=== PATIENT | male | born 1960 | race Caucasian/White ===

== ENCOUNTER 2016-12-24 13:07 | Emergency (ER) | payer OTHER ==
[2016-12-24 14:00] LABS: BASOPHIL 0.5 % (0-2); EOSINOPHIL 1.5 % (0-5); HCT 42.4 % (42.0-52.0); HGB 14.1 g/dl (13.2-18.0); LYMPHOCYTE 39.2 % (15-48); MCH 28.3 pg (25.0-31.0); MCHC 33.3 g/dL (32.0-36.0); MCV 85.1 fL (78.0-100.0); MONOCYTE 19.6 % (0-12); MPV 11.5 fL (6.0-9.5); NEUTROPHIL 39.2 % (41-80); PLT 146 K/uL (150-400); RBC 4.98 M/uL (4.70-6.00); RDW 13.7 % (11.5-14.0)
[2016-12-24 14:09] LABS: INR 1.13 (0.9-1.2); PROTHROMBIN TIME 14.1 SECONDS (11.7-14.0); PTT 37.7 SECONDS (23.2-31.4)
[2016-12-24 14:10] LABS: D-DIMER 0.28 ug/mLFEU (0.00-0.41)
[2016-12-24 14:12] LABS: ALBUMIN 4.3 g/dL (3.5-5.0); BILIRUBIN - TOTAL 0.3 mg/dL (0.1-1.0); CREATININE 0.8 mg/dL (0.7-1.2); GLOBULIN (CALCULATION) 4.1 g/dL (2.2-4.2); MAGNESIUM 1.96 mg/dL (1.40-2.10); POTASSIUM 4.2 mmol/L (3.5-5.1); TOTAL PROTEIN 8.4 g/dL (6.4-8.3)
[2016-12-24 14:15] LABS: CKMB 1.99 ng/mL (0.97-4.94); MYOGLOBIN 191 ng/mL (26-65); PRO-BNP 62 pg/mL (0-125); TROPONIN T < 0.010 ng/mL
[2016-12-24 14:19] LABS: AMPHETAMINES NEGATIVE (NEGATIVE); BARBITURATES NEGATIVE (NEGATIVE); BENZODIAZEPINES NEGATIVE (NEGATIVE); COCAINE NEGATIVE (NEGATIVE); MARIJUANA (THC) NEGATIVE (NEGATIVE); METHADONE NEGATIVE (NEGATIVE); TRICYCLIC ANTIDEPRESSANT NEGATIVE (NEGATIVE)
== END 2016-12-24 18:40 | disposition home or self-care (01) ==
LOC: FER 13:07
PROVIDERS: Nurse Practitioner
DX: M54.12 Radiculopathy, cervical region (principal); I10 Essential (primary) hypertension; Z79.899 Other long term (current) drug therapy
CPT/HCPCS: 36415; 70450; 71010; 72125; 80053; 80305; 82550; 82553; 83735; 83874; 83880; 84484; 85025; 85379; 85610; 85730; 93005; J1100